=== PATIENT | male | born 1960 | race Two or more races ===

== ENCOUNTER 2021-05-29 07:51 | Outpatient (CLI) | payer OTHER | END 2021-05-29 08:01 | disposition home or self-care (01) | LOC: SONOGRAMA 07:51 | PROVIDERS: ATTEND Pathology Anatomic Pathology & Clinical Pathology | DX: E04.1 Nontoxic single thyroid nodule (principal) ==

== ENCOUNTER 2024-02-17 08:10 | Outpatient (CLI) | payer OTHER | END 2024-02-17 08:13 | disposition home or self-care (01) | LOC: SONOGRAMA 08:10 | PROVIDERS: ATTEND Pathology Anatomic Pathology | DX: E04.2 Nontoxic multinodular goiter (principal) ==